=== PATIENT | male | born 1990 | race Caucasian/White ===

== ENCOUNTER 2016-12-19 22:12 | Emergency (ER) | payer OTHER ==
[~2016-12-19] VITALS: Ht 177.8 cm; Wt 107.4 kg
[~2016-12-19 22:12] MED LIST: FIORICET,ESG1 TABLET PO
[2016-12-19 23:29] LABS: ADD MIUA? YES; BILIRUBIN NEGATIVE; BLOOD NEGATIVE; COLOR YELLOW ((YELLOW)); GLUCOSE (STRIP) NEGATIVE; KETONES NEGATIVE; LEUKOCYTES NEGATIVE; NITRITE NEGATIVE; PROTEIN (STRIP) NEGATIVE; SPECIFIC GRAVITY 1.021 (1.000-1.030); UROBILINOGEN 0.2 MG/DL (0.2-1.0)
[2016-12-19 23:32] LABS: BASOPHIL COUNT 0.1 K/uL (0-0.1); EOSINOPHIL (%) 2.4 % (0-5); EOSINOPHIL COUNT 0.2 K/uL (0-0.3); IMMATURE GRANULOCYTE (%) 0.4 % (0.0-0.7); INSTRUMENT ABS NEUTROPHIL CT 5.3 K/uL; LYMPHOCYTE COUNT 2.5 K/uL (1.0-2.8); MCH 29.7 PG (29.0-34.0); MCHC 33.8 G/DL (30.0-36.0); MCV 87.7 FL (86-99); MEAN PLAT.VOLUME 11.1 uM^3 (9.0-12.4); MONOCYTE (%) 5.8 % (3-12); MONOCYTE COUNT 0.5 K/uL (0-0.8); NEUTROPHIL (%) 61.9 % (45-76); NEUTROPHIL COUNT 5.3 K/uL (1.8-6.4); PLATELET COUNT 266 K/uL (156-360); RBC DIS.WIDTH-CV 12.4 % (11.8-14.6); RBC DIS.WIDTH-SD 40.2 % (39-53); RED BLOOD COUNT 5.36 M/uL (4.00-5.50); WHITE BLOOD COUNT 8.5 K/uL (4.1-10.2)
[2016-12-19 23:34] LABS: BACTERIA RARE /HPF; EPITHELIAL CELLS NONE SEEN /HPF; MUCUS NONE SEEN /LPF; RED BLOOD CELLS 0-5 /HPF (0-5); UCUL ADDED? NO; WHITE BLOOD CELLS 0-5 /HPF (0-5)
[2016-12-19 23:36] LABS: CHLORIDE 105 mEq/L (99-109); POTASSIUM 4.2 mEq/L (3.7-5.4); SODIUM 141 mEq/L (136-147)
[2016-12-19 23:38] LABS: GLUCOSE 82 mg/dL (70-99)
[2016-12-19 23:40] LABS: ANION GAP 10 MEQ/L (2-14); TOTAL BILIRUBIN 0.6 mg/dL (0.0-1.0)
[2016-12-19 23:42] LABS: ALKALINE PHOSPHATASE 73 IU/L (3-129); GFR ESTIMATE (CALCULATED) > 59 mL/min/
[2016-12-19 23:43] LABS: UREA NITROGEN (BUN) 18 mg/dL (9-23)
[2016-12-19 23:45] LABS: LIPASE 31 U/L (1.0-51.0)
[2016-12-20 00:57] VITALS: BP 128/81
== END 2016-12-20 01:02 | disposition home or self-care (01) ==
LOC: EME 22:12
PROVIDERS: Emergency Medicine
DX: K80.20 Calculus of gallbladder without cholecystitis without obstruction (principal); K59.00 Constipation, unspecified
CPT/HCPCS: 74177; 80053; 81003; 83605; 83690; 85025; 99281; 99285; J7030

== ENCOUNTER 2017-02-16 05:13 | Day surgery (SDC) | payer OTHER ==
[~2017-02-16] VITALS: Ht 177.8 cm; Wt 103.0 kg
[~2017-02-16 05:13] MED LIST changes: +PROZAC20 MG PO; +XANAX0.5 MG PO
[2017-02-16 06:42] VITALS: BP 124/73
[2017-02-16] MEDS ORDERED: NORCO 5/3251 TABLET PO (08:30)
[2017-02-16 09:30] VITALS: BP 98/60
[2017-02-16 10:47] VITALS: BP 116/64
== END 2017-02-16 11:11 | disposition home or self-care (01) ==
LOC: SDC 05:13
PROC: 0FT44ZZ Resection of Gallbladder, Percutaneous Endoscopic Approach (ICD-10-PCS; principal; 2017-02-16)
DX: K80.10 Calculus of gallbladder with chronic cholecystitis without obstruction (principal); Z83.79 Family history of other diseases of the digestive system; F17.210 Nicotine dependence, cigarettes, uncomplicated
CPT/HCPCS: 88304; J0131; J0330; J1100; J1170; J1885; J2175; J2250; J2405; J2710